=== PATIENT | male | born 1995 | race Caucasian/White ===

== ENCOUNTER 2016-07-06 08:55 | Emergency (ER) | payer SELFPAY ==
--- NOTE | 2016-07-06 10:14 | ER Document Report ---
ED General - General Chief Complaint: Cough Stated Complaint: COUGH Time seen by provider: 09:30 Mode of Arrival: Ambulatory Information source: Patient, Parent Notes: 20-year-old male who initially presents with a complaint of nonproductive cough nasal congestion for 2 days. However he then complains that he has been intermittently having sharp pain in various parts of his chest that will come on the excruciating for a few minutes and go away for 3 yearsof a coming on more frequently as once they're now twice a week. He says he did not see physician for that before and that is really why he came to the emergency department. He denies fever, chills, nausea, vomiting, diaphoresis, hematemesis , melena, earache, sore throat, headache, dysuria, pain numbness weakness to extremities. He is having no chest pain at the moment. Physical Exam: General: Alert, appears well. HEENT: Normocephalic. Atraumatic. PERRLA. Extraocular movements intact. Tympanic membranes and canals clear. Oropharynx clear. Neck: Supple. Non-tender. JVD Respiratory: No respiratory distress. Clear and equal breath sounds bilaterally. Nontender to palpation Cardiovascular: Regular rate and rhythm. Abdominal: Normal Inspection. Soft, non-tender. No distension. Normal Bowel Sounds. Back: Non-tender. No deformity or step off. Extremities: Moves all four extremities. Upper extremities: Normal inspection. Non-tender. Normal color. Normal ROM. Normal temperature. Lower extremities: Normal inspection. Non-tender. No edema. Normal color. Normal ROM. Normal temperature. Neurological: Cranial nerves II-XII grossly intact bilaterally. Strength 5/5 throughout. Sensation intact to light touch. Normal cognition. AAOx4. Normal speech. Psychological: Normal affect. Normal Mood. Skin: Warm. Dry. Normal color. TRAVEL OUTSIDE OF THE [place] IN LAST 30 DAYS: No - Related Data Allergies/Adverse Reactions: amoxicillin Allergy (Verified 07/06/16 08:59) Past Medical History - Social History Smoking Status: Current Every Day Smoker Chew tobacco use (# tins/day): No Frequency of alcohol use: None Drug Abuse: Marijuana Family History: Hypertension Patient has suicidal ideation: No Patient has homicidal ideation: No Review of Systems - Review of Systems Constitutional: See HPI EENT: See HPI Cardiovascular: See HPI Respiratory: See HPI Gastrointestinal: See HPI Genitourinary: denies: Burning, Dysuria Musculoskeletal: denies: Back pain, Muscle pain Skin: denies: Rash Hematologic/Lymphatic: denies: Swollen glands Neurological/Psychological: denies: Weakness, Numbness Physical Exam - Vital signs Vitals: Temp Pulse Resp BP Pulse Ox 97.9 F 65 16 131/79 H 97 07/06/16 08:58 07/06/16 08:58 07/06/16 08:58 07/06/16 08:58 07/06/16 08:58 Course - Re-evaluation Re-evalutation: 07/06/16 10:12 Patient's initial presenting symptoms are consistent with a viral syndrome requiring no treatment except [id number] medication. Patient's description of his chest discomfort is mildly concerning for small spontaneous pneumothorax but obviously these would have to not be large enough to be persistent disease reporting the pain is going away after few minutes. In any case chest x-ray and EKG are normal he is nontoxic now and does not require further evaluation in the emergency department for that complaint - Vital Signs Vital signs: Temp Pulse Resp BP Pulse Ox 97.9 F 65 16 131/79 H 97 07/06/16 08:58 07/06/16 08:58 07/06/16 08:58 07/06/16 08:58 07/06/16 08:58 - Diagnostic Test Radiology reviewed: Reports reviewed - EKG Interpretation by Me Additional EKG results interpreted by me: 07/06/16 10:12 EKG reviewed by myself shows sinus rhythm at 55 with no acute changes Discharge - Discharge Clinical Impression: Viral syndrome Chest pain Qualifiers: Chest pain type: unspecified Qualified Code(s): R07.9 - Chest pain, unspecified Condition: Stable Disposition: HOME, SELF-CARE Instructions: Viral Syndrome ([facility]) Referrals: MARCIA DIAZ MD [ACTIVE STAFF] - Follow up as needed
--- NOTE | 2016-07-06 10:23 | EKG REPORT ---
SEVERITY:- NORMAL ECG - SINUS RHYTHM : Confirmed by: Jackie Dickson 06-Jul-2016 10:22:31
[2016-07-06 10:24] VITALS: BP 129/69
== END 2016-07-06 10:21 | disposition home or self-care (01) ==
LOC: ER 08:55
DX: R07.9 Chest pain, unspecified (principal); B34.9 Viral infection, unspecified; R05 Cough; R09.81 Nasal congestion; F17.200 Nicotine dependence, unspecified, uncomplicated; Z88.0 Allergy status to penicillin
CPT/HCPCS: 71020; 93005; 93010; 99283

== ENCOUNTER 2016-07-16 00:02 | Emergency (ER) | payer SELFPAY | END 2016-07-16 02:15 | disposition left against medical advice (07) | LOC: ER 00:02 | DX: Z53.21 Procedure and treatment not carried out due to patient leaving prior to being seen by health care provider (principal) ==